=== PATIENT | male | born 1955 | race Caucasian/White ===

== ENCOUNTER 2020-05-16 15:49 | Outpatient (CLI) | payer MEDICARE, SELFPAY | END 2020-05-16 15:50 | disposition home or self-care (01) | LOC: ANHCOVIDVC 15:49 | PROVIDERS: PCP Internal Medicine | DX: Z23 Encounter for immunization (principal) | CPT/HCPCS: 0001A; 91300 ==

== ENCOUNTER 2020-06-06 15:47 | Outpatient (CLI) | payer MEDICARE, SELFPAY | END 2020-06-06 15:48 | disposition home or self-care (01) | LOC: ANHCOVIDVC 15:47 | PROVIDERS: PCP Internal Medicine | DX: Z23 Encounter for immunization (principal) | CPT/HCPCS: 0002A; 91300 ==

== ENCOUNTER 2020-09-30 08:29 | Outpatient (CLI) | payer MEDICARE, SELFPAY ==
--- NOTE | ~2020-09-30 | CT_ITS ---
EXAMINATION: CT chest abdomen wo con EXAM DATE: 09/30/2020 09:01 INDICATION: FU TAA and AAA . Asthma, shortness of breath. TECHNIQUE: Spiral CT of the chest and abdomen was performed without contrast. Axial, coronal and sa gittal images chest and abdomen were reviewed. Coronal maximum intensity pixel images of chest revie wed. The dose-length product (DLP) for this examination was 527.34 mGy-cm. The exposure was tailore d according to patient size (auto mA exposure control), and iterative reconstruction (ASIR) was used as additional dose reduction technique. Comparison is made to prior examination from 02/16/2019. FINDINGS: Aorta: The ascending aorta measures 5.4 cm, minimally increased in size. Caliber normalizes at the ao rtic arch, and then dilates again beyond to 4.5 cm proximal descending segment (was 4.3 cm). It then narrows distally and then enlarges again at the aortic hiatus where it measures 4.9 cm (previously 4. 5 cm). CHEST: There is moderate emphysema. The lungs are clear. There are no pleural or pericardial effusi ons. Tracheobronchial tree is patent. There is no mediastinal, hilar or axillary lymphadenopathy. There is no pneumothorax. Heart normal in size. Atrial septal closure device. No evidence of cor onary arterial calcification. ABDOMEN: The liver, spleen, adrenal glands and pancreas are unremarkable. Gallbladder is unremarkabl e. No biliary obstruction. There is no nephrolithiasis or hydronephrosis. There is no retroperit rivera lymphadenopathy. Minimal abdominal aortic arterial sclerosis and ectasia. Small umbilical fat -containing hernia. The appendix is normal. The stomach and small bowel are unremarkable. There is expected amount of c olonic stool. No free intraperitoneal gas. There are no osteoblastic or osteolytic lesions identi fied. IMPRESSION: 1. Ascending and descending thoracic aortic aneurysm, mild interval increase in diameters. 2. Small umbilical fat-containing hernia. 3. Moderate emphysema. Reviewed, dictated and finalized at location B. IMPRESSION: 1. Ascending and descending thoracic aortic aneurysm, mild interval increase i n diameters. 2. Small umbilical fat-containing hernia. 3. Moderate emphysema.
== END 2020-09-30 08:30 | disposition home or self-care (01) ==
PROVIDERS: PCP Internal Medicine; Visit Provider Internal Medicine Cardiovascular Disease
DX: J43.9 Emphysema, unspecified (principal); K44.9 Diaphragmatic hernia without obstruction or gangrene; I71.4 Abdominal aortic aneurysm, without rupture
CPT/HCPCS: 71250; 74150

== ENCOUNTER 2021-02-11 08:55 | Outpatient (CLI) | payer MEDICARE, SELFPAY ==
--- NOTE | ~2021-02-11 | CT_ITS ---
EXAMINATION: CTA chest abdomen pelvis DATE: 02/11/2021 10:00 INDICATION: Aortic aneurysm TECHNIQUE: Computed tomographic angiography (CTA) of the chest, abdomen, and pelvis was performed wit hout and with 100 mL Omnipque-350 intravenous contrast. Maximum intensity projection 3D-reconstructio ns of the aorta and other arteries were constructed by the technologist on a separate workstation. Th e dose-length product (DLP) was 935.24 mGy-cm. Automated exposure control and iterative reconstructio n technique were employed. COMPARISON: 09/30/2020 FINDINGS: CHEST CTA: There is a stable 5.3 x 5.2 cm fusiform aneurysm of the ascending aorta measured at the level of the main pulmonary artery. The descending thoracic aorta measures up to 4.2 cm in its proximal segment an d 4.1 cm just above the hiatus. There is no dissection. There is calcified and noncalcified atheroscl erosis of the thoracic aorta. There is moderate emphysema. There is mild dependent atelectasis. No pl eural effusion or pneumothorax is identified. No pathologically enlarged thoracic lymph nodes are aishwarya ntified. The heart size is normal. An ASD closure device is noted. There is moderate thoracic spondyl osis. ABDOMEN AND PELVIS CTA: The abdominal aorta measures 4.8 cm at the diaphragmatic hiatus. The distal abdominal aorta is normal in caliber. There is no dissection. 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 Singl e renal arteries are present. There is calcified atherosclerosis. Moderate amount of noncalcified ath erosclerosis is present in the proximal abdominal aorta. A stable 0.4 cm enhancing lesion is noted in the left hepatic lobe. A 10 mm cyst is present in the right hepatic lobe. The liver is otherwise unr emarkable. The spleen, pancreas, gallbladder, and adrenal glands are normal. The kidneys are unremark able. No pathologically enlarged abdominal or pelvic lymph nodes are identified. There is no free int raperitoneal gas or evidence of bowel obstruction. There is moderate lumbar spondylosis. IMPRESSION: 1. Stable fusiform aneurysm of the ascending aorta, proximal descending aorta, and aorta at the diaph ragmatic hiatus. No dissection. 2. 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 Reviewed, dictated and finalized at location A. 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 Stable fusiform aneurysm of the ascending aorta, proximal descending aorta, and aorta at the diaphragmatic hiatus. No dissection. 2. 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
== END 2021-02-11 08:56 | disposition home or self-care (01) ==
LOC: ANHIMG 08:58
PROVIDERS: PCP Internal Medicine; Visit Provider Internal Medicine Cardiovascular Disease
DX: I71.4 Abdominal aortic aneurysm, without rupture (principal)
CPT/HCPCS: 71275; 74174; Q9967

== ENCOUNTER 2021-10-10 16:10 | Outpatient (CLI) | payer MEDICARE, SELFPAY ==
--- NOTE | ~2021-10-10 | CT_ITS ---
EXAMINATION: CT chest abdomen wo con DATE: 10/10/2021 16:28 INDICATION: Abdominal aortic aneurysm EXAMINATION: CT chest abdomen wo con DATE: 10/10/2021 16:28 INDICATION: AAA TECHNIQUE: Computed tomography (CT) of the chest and abdomen was performed without intravenous contra st. Additional 3D reconstructions utilizing coronal maximum intensity projection (MIP) were performed . Automated exposure control and iterative reconstruction technique were employed. The dose-length pr oduct was 581.57 mGy-cm. COMPARISON: 02/21/2021 and 02/16/2019. FINDINGS: CHEST: Moderate emphysema. Mild discoid atelectasis at the lingula. No pneumonia, pulmonary edema, pleural e ffusion or pneumothorax. Heart size is normal. No pericardial effusion. ASD closure device. No pathol ogically enlarged thoracic lymphadenopathy. Moderate thoracic spondylosis. Diffusely aneurysmal aorta including a fusiform aneurysm of the ascending thoracic aorta measuring up to 5.1 x 5.4 cm tapering to 3.0 x 2.9 cm the isthmus. Aneurysmal dilation of the descending thoracic aorta measuring 4.4 x 4.3 cm proximally tapering slightly to 3.7 x 3.7 cm at the mid aorta at the level of the aortic valve be fore expanding again to 4.8 x 4.7 cm at the thoracic outlet. This is not significantly changed when c ompared with study dated 02/16/2019. ABDOMEN: There is further tapering of the abdominal aorta from the thoracic hiatus to a diameter of 3.2 x 3.2 cm at the level of the renal arteries decreasing and further to 2.4 x 2.4 cm at the level of the bifu rcation. Couple low-attenuation cysts in the right hepatic lobe the larger measuring 12 mm . The gall bladder, spleen, pancreas, bilateral adrenal glands and kidneys are normal. Retroaortic left renal ve in. Visualized portion of the bowels are unremarkable. No pathologically enlarged abdominal lymphaden opathy. 4 mm retrolisthesis L2 on L3 resulting in mild central canal stenosis at this level. There ar e severe associated disc height loss. Otherwise mild lumbar spondylosis. IMPRESSION: 1. No change since 02/16/2019 in aneurysmal dilation of the thoracic aorta with maximal diameters john suring 5.1 x 5.4 cm at the mid ascending thoracic aorta and 4.8 x 4.7 cm at the distal thoracic aorta at the thoracic hiatus. 2. Moderate emphysema. 3. Abdominal aorta tapers to normal caliber beginning at the level of the renal arteries where it john sures 3.2 cm. Reviewed, dictated and finalized at location A. IMPRESSION: 1. No change since 02/16/2019 in aneurysmal dilation of the thoracic aorta with maximal diameters measuring 5.1 x 5.4 cm at the mid ascending thoracic aorta a nd 4.8 x 4.7 cm at the distal thoracic aorta at the thoracic hiatus. 2. Moderate emphysema. 3. Abdominal aorta tapers to normal caliber beginning at the level of the renal arteries where it measures 3.2 cm.
== END 2021-10-10 16:11 | disposition home or self-care (01) ==
PROVIDERS: PCP Internal Medicine; Visit Provider Internal Medicine Cardiovascular Disease
DX: I71.2 Thoracic aortic aneurysm, without rupture (principal); I71.4 Abdominal aortic aneurysm, without rupture; J43.9 Emphysema, unspecified
CPT/HCPCS: 71250; 74150

== ENCOUNTER 2022-04-21 09:17 | Outpatient (CLI) | payer MEDICARE, SELFPAY ==
--- NOTE | ~2022-04-21 | US_ITS ---
EXAMINATION: US carotid duplex BI DATE: 04/21/2022 09:46 INDICATION: Left carotid bruit. TECHNIQUE: Grayscale, color Doppler, and pulsed Doppler images of the cervical carotid arteries were obtained. The degree of vessel stenosis is placed in one of the following categories: normal, <50%, 5 0-69%, >=70% but less than near-occlusion, near-occlusion, or total occlusion. Note that percent sten osis relative to normal distal artery lumen diameter is indirectly measured from velocity measurement s as described by Jasper, et al. Radiology 2003; [id number]:340-346. COMPARISON: Ultrasound 12/23/2016 FINDINGS: RIGHT: The right common carotid artery (CCA) peak systolic velocity (PSV) is 103 cm/s. The right internal ca rotid artery (ICA) PSV is 112 cm/s. The right ICA end-diastolic velocity (EDV) is 20 cm/s. The right ICA/CCA PSV ratio is 1.1. Grayscale and color Doppler images yield an estimate of <50% diameter reduc tion from plaque in the ICA. There is antegrade flow in the right vertebral artery. LEFT: The left CCA PSV is 86 cm/s. The left ICA PSV is 97 cm/s. The left ICA EDV is 19 cm/s. The left ICA/C CA PSV ratio is 1.1. Grayscale and color Doppler images yield an estimate of <50% diameter reduction from plaque in the ICA. There is antegrade flow in the left vertebral artery. IMPRESSION: 1. <50% stenosis in the right internal carotid artery. 2. <50% stenosis in the left internal carotid artery. Reviewed, dictated and finalized at location A. 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
--- NOTE | ~2022-04-21 | CT_ITS ---
EXAMINATION: CT chest abdomen wo con DATE: 04/21/2022 09:51 INDICATION: Aortic aneurysm without rupture TECHNIQUE: Computed tomography (CT) of the chest and abdomen was performed without intravenous contra st. The dose-length product (DLP) was 480.03 mGy-cm. Automated exposure control and iterative reconst ruction technique were employed. COMPARISON: 02/11/2021 FINDINGS: CHEST: There is a stable 5.3 x 4.9 cm fusiform aneurysm of the ascending aorta measured at the level of the main pulmonary artery. The descending aorta measures up to 4.5 cm in its proximal segment and 4.2 cm above the hiatus. There is moderate emphysema. An ASD closure device is noted. No pathological ly enlarged thoracic lymph nodes are identified. The heart size is normal. ABDOMEN: The aorta measures 4.8 cm at the level of the diaphragmatic hiatus. The distal abdominal aor ta is normal in caliber. No dissection is identified. 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 There is a 10 mm cyst of the right hepatic lobe. The spleen, pancreas, gallbladder, and adrenal glands are normal there are no pathologically enlarged abdominal nodes. A moderate volum e of colonic stool is present. No free intraperitoneal gas or evidence of bowel obstruction. IMPRESSION: 1. Stable fusiform aneurysm of the ascending aorta, proximal descending aorta, and aorta at the diaph ragmatic hiatus. Reviewed, dictated and finalized at location L. 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 Stable fusiform aneurysm of the ascending aorta, proximal descending aorta, and aorta at the diaphragmatic hiatus.
== END 2022-04-21 09:18 | disposition home or self-care (01) ==
PROVIDERS: PCP Family Medicine; Visit Provider Internal Medicine Cardiovascular Disease
DX: I71.21 Aneurysm of the ascending aorta, without rupture (principal); I71.40 Abdominal aortic aneurysm, without rupture, unspecified; I65.23 Occlusion and stenosis of bilateral carotid arteries
CPT/HCPCS: 71250; 74150; 93880

== ENCOUNTER 2022-05-25 10:50 | Outpatient (CLI) | payer MEDICARE, SELFPAY ==
[2022-05-25 20:31] LABS: Alanine Aminotransferase 28 U/L (6-50); Albumin Level 4.3 g/dL (3.5-5.1); Alkaline Phosphatase 83 U/L (38-126); Anion Gap 6 mmol/L (8-16); Aspartate Amino Transferase 23 U/L (17-59); Bilirubin,Total 0.5 mg/dL (0.2-1.3); Blood Urea Nitrogen 31 mg/dL (9-20); Calcium 9.2 mg/dL (8.4-10.2); Carbon Dioxide 27 mmol/L (22-30); Chloride 105 mmol/L (98-107); Cholesterol 171 mg/dL (0-200); Estimated Glomerular Filt Rate 60; Glucose 102 mg/dL (65-110); HDL Direct 51 mg/dL; Potassium 4.7 mmol/L (3.4-5.0); Sodium 138 mmol/L (137-145); Triglycerides 91 mg/dL (<150)
[2022-05-25 20:43] LABS: LDL Cholesterol Direct 87 mg/dL
[2022-05-25 21:18] LABS: Hemoglobin A1C 5.6 % (<5.7)
== END 2022-05-25 10:51 | disposition home or self-care (01) ==
LOC: ANHGOSHLAB 10:51
PROVIDERS: PCP Family Medicine; Visit Provider Family Medicine
DX: E78.5 Hyperlipidemia, unspecified (principal); R73.01 Impaired fasting glucose; I10 Essential (primary) hypertension; Z12.5 Encounter for screening for malignant neoplasm of prostate
CPT/HCPCS: 36415; 80053; 80061; 83036; 84153; G0103

== ENCOUNTER 2022-10-23 15:48 | Outpatient (CLI) | payer MEDICARE, SELFPAY ==
--- NOTE | ~2022-10-23 | CT_ITS ---
EXAMINATION: CT diagnostic chest wo con DATE: 10/23/2022 16:08 INDICATION: Thoracic aortic aneurysm without rupture TECHNIQUE: Computed tomography (CT) of the chest was performed without intravenous contrast. The dose -length product (DLP) was 297.06 mGy-cm. Automated exposure control and iterative reconstruction tech [employer] were employed. COMPARISON: 04/21/2022 FINDINGS: There is a 5.3 x 4.9 cm fusiform aneurysm of the ascending aorta measured at the level of t he main pulmonary artery. The descending thoracic aorta measures 4.5 cm in its proximal segment, 4.2 cm in the distal descending aorta and 4.8 cm at the diaphragmatic hiatus There is moderate thoracic s pondylosis. . Although limited by the absence of intravenous contrast, no dissection is identified. An ASD closure device is noted. There is a 3 mm nodule of the left lower lobe. No pleural effusion or pneumothorax. No pathologically enlarged thoracic lymph nodes are identified. The heart size is norm al. There is a 10 mm cyst of the right hepatic lobe. IMPRESSION: 1. Stable fusiform aneurysm of the thoracic aorta. 2. Moderate emphysema. Reviewed, dictated and finalized at location F.
== END 2022-10-23 15:49 | disposition home or self-care (01) ==
PROVIDERS: PCP Family Medicine; Visit Provider Internal Medicine Cardiovascular Disease
DX: I71.21 Aneurysm of the ascending aorta, without rupture (principal); J43.9 Emphysema, unspecified
CPT/HCPCS: 71250

== ENCOUNTER → 2022-11-26 09:10 | Outpatient (CLI) | payer MEDICARE, SELFPAY ==
--- NOTE | ~2022-11-26 | XR_ITS ---
EXAMINATION: XR knee RT 3V DATE: 11/26/2022 09:22 INDICATION: Right knee pain TECHNIQUE: Three views of the right knee were obtained. COMPARISON: None. FINDINGS: Alignment is normal. No fracture or osteochondral lesion. There is mild tricompartmental os teoarthritis characterized by tiny marginal osteophytes. No joint effusion/synovitis. There is soft tissue swelling near the distal femur. IMPRESSION: 1. Soft tissue swelling without acute osseous abnormality. Reviewed, dictated and finalized at location L.
== END ==
PROVIDERS: PCP Family Medicine; Visit Provider Family Medicine
DX: M25.561 Pain in right knee (principal)
CPT/HCPCS: 73562

== ENCOUNTER 2023-05-04 10:10 | Outpatient (CLI) | payer MEDICARE, SELFPAY ==
--- NOTE | ~2023-05-04 | CT_ITS ---
EXAMINATION: CT chest abdomen wo con DATE: 05/04/2023 10:47 INDICATION: Lung nodule, abdominal aortic aneurysm TECHNIQUE: Computed tomography (CT) of the chest and abdomen was performed without intravenous contra st. The dose-length product (DLP) was 547.29 mGy-cm. Automated exposure control and iterative reconst ruction technique were employed. COMPARISON: 10/23/2022, 04/21/2022 FINDINGS: Chest CT: There is moderate emphysema. An ASD closure device is noted. There is a stable 3 mm nodule of the left lower lobe. The heart size is normal. There are no pathologically enlarged thoracic lymph nodes. There is a stable 5.3 x 5.0 cm fusiform aneurysm measured at the level of the main pulmonary artery. There is stable fusiform enlargement of the proximal descending aorta measuring 4.5 cm proxim ally and 4.8 cm at the diaphragmatic hiatus. There is moderate thoracic spondylosis. Abdomen CT: The abdominal aorta is normal in caliber. The spleen, pancreas, gallbladder, and adrenal glands are normal. The kidneys are unremarkable. There is an 11 mm cyst in the right hepatic lobe. Th e adrenal glands are normal. There are no pathologically enlarged abdominal lymph nodes. No free intr aperitoneal gas or evidence of bowel obstruction. There is moderate lumbar spondylosis. IMPRESSION: 1. Stable fusiform aneurysms of the thoracic aorta. 2. No acute findings in the abdomen. Reviewed, dictated and finalized at location L. 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
== END 2023-05-04 10:11 | disposition home or self-care (01) ==
LOC: ANHIMG 10:15
PROVIDERS: PCP Family Medicine; Visit Provider Internal Medicine Cardiovascular Disease
DX: I71.41 Pararenal abdominal aortic aneurysm, without rupture (principal); R91.1 Solitary pulmonary nodule
CPT/HCPCS: 71250; 74150

== ENCOUNTER 2023-05-27 10:21 | Outpatient (CLI) | payer MEDICARE, SELFPAY ==
[2023-05-27 18:25] LABS: Alanine Aminotransferase 29 U/L (6-50); Albumin Level 4.2 g/dL (3.5-5.1); Alkaline Phosphatase 90 U/L (38-126); Anion Gap 7 mmol/L (8-16); Aspartate Amino Transferase 30 U/L (17-59); Bilirubin,Total 0.7 mg/dL (0.2-1.3); Blood Urea Nitrogen 27 mg/dL (9-20); Carbon Dioxide 27 mmol/L (22-30); Chloride 105 mmol/L (98-107); Cholesterol 180 mg/dL (0-200); Estimated Glomerular Filt Rate 60; Glucose 110 mg/dL (65-110); HDL Direct 47 mg/dL; Potassium 4.4 mmol/L (3.4-5.0); Sodium 139 mmol/L (137-145); Triglycerides 151 mg/dL (<150)
[2023-05-27 19:03] LABS: Prostate Specific Antigen 3.1 ng/mL (< OR = 4.0)
[2023-05-27 22:09] LABS: LDL Cholesterol Direct 121 mg/dL
[2023-05-28 02:38] LABS: Hemoglobin A1C 6.1 % (<5.7)
== END 2023-05-27 10:22 | disposition home or self-care (01) ==
LOC: ANHGOSHLAB 10:23
PROVIDERS: PCP Family Medicine; Visit Provider Family Medicine
DX: R73.01 Impaired fasting glucose (principal); I10 Essential (primary) hypertension; Z13.220 Encounter for screening for lipoid disorders; Z13.228 Encounter for screening for other metabolic disorders; Z12.5 Encounter for screening for malignant neoplasm of prostate
CPT/HCPCS: 36415; 80053; 80061; 83036; 84153; G0103

== ENCOUNTER 2023-11-11 07:40 | Outpatient (CLI) | payer MEDICARE, SELFPAY ==
--- NOTE | ~2023-11-11 | CT_ITS ---
EXAMINATION: CTA chest abdomen pelvis DATE: 11/11/2023 08:24 INDICATION: Aneurysm of ascending aorta. TECHNIQUE: Computed tomographic angiography (CTA) of the chest, abdomen, and pelvis was performed wit h 100 mL Omnipaque-350 intravenous contrast. Automated exposure control and iterative reconstruction technique were employed. The dose-length product was 877.06 mGy-cm. Maximum intensity projection 3D-r econstructions of the aorta and other arteries were constructed by the technologist on a separate wor kstation. COMPARISON: CT 05/04/2023 FINDINGS: CHEST CTA: There is mild scarring at the lung apices. There is moderate emphysema. There is mild atelectasis carmen aterally. There is a 3 mm nodule in left lower lobe, likely benign. No pleural effusion. Cardiomegaly is noted. There is an interatrial closure device. No pericardial effusion. The aorta measures 3.7 cm at the sinuses of Valsalva, 3.4 cm at the sinotubular junction, 5.1 cm at the mid ascending aorta, 2 .7 cm in the isthmus, 4.5 cm in the proximal descending aorta, and 3.9 cm in the distal descending th oracic aorta. Aortic atherosclerosis is noted. There is severe cervical thoracic spondylosis ABDOMEN AND PELVIS CTA: There is a 12 mm cyst in the liver. The gallbladder, spleen, pancreas, and adrenal glands are normal. There is cortical thinning of the kidneys. There are cysts in the kidneys measuring up to 3 mm. The prostate is moderately enlarged. There are no dilated loops of bowel. The appendix is normal. There a re no pathologically enlarged lymph nodes. There is no free intraperitoneal fluid. There is an umbili terrance hernia containing fat. Suprarenal aorta measures 4.7 cm. Infrarenal aorta measures 2.9 cm. There is severe stenosis of the origin of celiac axis. There is no significant stenosis of superior mesente kurt artery or inferior mesenteric artery. There is moderate lumbar spondylosis. IMPRESSION: 1. Stable 5.1 cm fusiform aneurysm of ascending aorta. 2. Stable 4.7 cm fusiform aneurysm of suprarenal abdominal aorta. Reviewed, dictated and finalized at location A.
[2023-11-11 08:18] LABS: Estimated Glomerular Filt Rate 47
== END 2023-11-11 07:41 | disposition home or self-care (01) ==
PROVIDERS: PCP Family Medicine; Visit Provider Internal Medicine Cardiovascular Disease
DX: I71.21 Aneurysm of the ascending aorta, without rupture (principal); Z87.74 Personal history of (corrected) congenital malformations of heart and circulatory system
CPT/HCPCS: 71275; 74174; Q9967

== ENCOUNTER 2023-12-12 11:48 | Emergency (ER) | payer MEDICARE, SELFPAY ==
--- NOTE | ~2023-12-12 | XR_ITS ---
EXAMINATION: XR chest 2V Exam Date/Time: 12/12/2023 13:38 CDT HISTORY: cough x 9 days Comparison: 01/29/2017. RESULT: Lines, tubes, and devices: Atrial occlusion device. Lungs and pleura: Clear. Cardiomediastinal silhouette: Stable. Other: No acute osseous or upper abdominal finding. IMPRESSION: No acute cardiopulmonary process. Reviewed, dictated and finalized at location K.
[2023-12-12 12:25] VITALS: BP 113/64; PULSE 77; RESP 16; TEMP 36.6; O2SAT 100
--- NOTE | 2023-12-12 13:48 | ED.GENADULT ---
HPI - General Adult General Chief complaint: Upper Respiratory Infection Stated complaint: CHEST CONGESITON/SOB Source: patient Mode of arrival: ambulatory Limitations: no limitations History of Present Illness HPI narrative: Patient presents for evaluation of a cough for the last 9 days. He states the cough is productive but he is unsure of the color of the expectorant. He has some chronic shortness of breath, not worse as of late. He is a former smoker, with quit date in 2010. He has a history of COPD, HTN, asthma and hyperlipidemia. He reports a Tmax at home of 100.6 F. He is concerned about a sore throat and has had some diarrhea which he attributes to taking Ricola. No nausea or vomiting. No recent sick contacts to his knowledge. He has been using robitussin and he had some leftover nebulizer treatments from 2017 that he tried. He had mild improvement in his symptoms thereafter. Related Data Home Medications Medication Instructions Recorded Confirmed aspirin 81 mg tablet,delayed 81 mg PO DAILY 03/30/19 12/12/23 release (Adult Low Dose Aspirin) lactase 9,000 unit tablet 9,000 unit PO ONCE 03/30/19 12/12/23 amlodipine 10 mg tablet 10 mg PO DAILY 11/20/21 12/12/23 lisinopril 20 mg tablet 20 mg PO DAILY 11/26/22 12/12/23 metoprolol succinate 50 mg 50 mg PO DAILY 11/26/22 12/12/23 tablet,extended release 24 hr omeprazole 20 mg capsule,delayed 20 mg PO DAILY 12/12/23 12/12/23 release Allergies Allergy/AdvReac Type Severity Reaction Status Date / Time adhesive AdvReac Unknown Other Verified 12/12/23 12:20 Review of Systems Review of Systems: CONSTITUTIONAL: Denies fever, chills, or sweats. EYES: Denies visual changes, redness, or discharge. ENT: Reports sore throat.Denies rhinorrhea, congestion, or otalgia. CARDIOVASCULAR: Denies chest pain, palpitations, or edema. RESPIRATORY: Reports productive cough. Reports chronic shortness of breath. GASTROINTESTINAL: Denies abdominal pain, nausea, vomiting, or diarrhea. GENITOURINARY: Denies dysuria or hematuria. SKIN: Denies rash or itching. MUSCULOSKELETAL: Denies back pain, joint pain, or myalgia. NEUROLOGIC: Denies headache, numbness, dizziness, or weakness. PSYCHIATRIC: Denies anxiety or depression. [facility] Past Medical History Medical History History of aortic aneurysm History of hyperlipidemia History of hypertension Surgical History Surgical History No significant past surgical history Family History Family History Mother Family history of malignant neoplasm Social History Social History Smoking status: Former smoker Second hand tobacco smoke exposure: No Smoking end date: 03/08/09 Alcohol intake: never Substance use: never Current Housing: Decline to Answer Concerned About Future Housing: Decline to Answer Difficulty Paying Gas/Electric Bills: Decline to Answer Difficulty Paying for Meds: Decline to Answer Currently Unemployed: Decline to Answer Education: Decline to Answer Difficulty w/ Childcare or Family Care: Decline to Answer Exam Narrative: GENERAL: Well-appearing, well-nourished, and in no acute distress. HEAD: Normocephalic, atraumatic. EYES: PERRLA and EOMI. ENT: Nares clear, no rhinorrhea or epistaxis. Mucous membranes moist. Oropharynx without tonsillar hypertrophy exudate or other lesions. Bilateral TMs pearly burger nonbulging NECK: Supple. No adenopathy or masses. No carotid bruits or JVD CHEST: Clear to auscultation. No respiratory distress. No wheezes rales or rhonchi HEART: Regular rate and rhythm. No murmur heard. Normal peripheral pulses. ABDOMEN: Soft, nontender, nondistended, normal active bowel sounds. EXTREMITIES: Normal range of motion. No
[2023-12-12 14:02] LABS: EDSTREPNEGPOS1 Negative (Negative)
== END 2023-12-12 14:39 | disposition home or self-care (01) ==
PROVIDERS: Emergency Provider Nurse Practitioner; PCP Family Medicine
DX: J06.9 Acute upper respiratory infection, unspecified (principal); Z87.891 Personal history of nicotine dependence; J44.9 Chronic obstructive pulmonary disease, unspecified; E78.5 Hyperlipidemia, unspecified; I10 Essential (primary) hypertension
CPT/HCPCS: 71046; 87081; 87880; 99213; G0463

== ENCOUNTER 2024-05-30 08:55 | Outpatient (CLI) | payer MEDICARE, SELFPAY ==
--- OUTSIDE RECORDS SUMMARY | 2024-05-30 09:39 | XMS_ITS | Referral Summary ---
Author Organization [facility] Address [address] [place] [address] Care Team Providers Care Flavor Maker Name Role Phone Leighton Trent DO Primary Care Provider [phone] Encounters Date Type Department Care Team Description 05/08/2024 9:45 AM FOOD AND BEVERAGE CONTROLLER Office Visit [facility] Cardiology [address] [place] [address] Hong Merrill MD Status post device closure of ASD (Primary Dx); Mixed hyperlipidemia; Essential hypertension; Abdominal aortic aneurysm (AAA) without rupture, unspecified part; Aneurysm of ascending aorta without rupture from Last 3 Months Allergies No known active allergies Medications atorvastatin (LIPITOR) 20 mg tablet Take 1 tablet (20 mg total) by mouth daily Active albuterol HFA (PROVENTIL HFA,VENTOLIN HFA) 90 mcg/actuation inhaler Inhale 2 puffs every 6 (six) hours as needed for wheezing Active lactase 9,000 unit tablet Take by mouth as needed Active aspirin 81 mg tablet Take 1 tablet (81 mg total) by mouth daily Active chlorthalidone 25 mg tabletIndication s:Essential hypertension Take 1 tablet (25 mg total) by mouth daily 30 tablet 11 2 Active lisinopriL (PRINIVIL,ZESTRI L) 20 mg tabletIndication s:Essential hypertension TAKE 1 TABLET BY MOUTH EVERY DAY 90 tablet 3 4 Active metoprolol XL (TOPROL-XL) 50 mg extended release tabletIndication s:Essential hypertension TAKE 1 TABLET BY MOUTH EVERY DAY 90 tablet 3 4 Active amLODIPine (NORVASC) 10 mg tabletIndication s:Essential hypertension TAKE 1 TABLET BY MOUTH EVERY DAY 90 tablet 3 5 Active famotidine (PEPCID) 40 mg tablet Take 1 tablet (40 mg total) by mouth daily 4 Active omeprazole (PriLOSEC) 20 mg capsule Take 1 capsule (20 mg total) by mouth daily 05/09/19 25 Discontinu ed(Alterna te therapy) Active Problems Problem Noted Date Diagnosed Date Left lower lobe pulmonary nodule 04/27/2023 Statin intolerance 04/26/2022 Left carotid bruit 04/14/2022 Abdominal aortic atherosclerosis 10/11/2021 Hypotension due to drugs 10/06/2021 Bradycardia 10/06/2021 Other emphysema 03/28/2019 Status post device closure of ASD 10/14/2017 Prediabetes 10/14/2017 Irritable bowel syndrome with constipation 10/14 Bleeding hemorrhoid 10/14/2017 Mitral valve insufficiency and aortic valve insu fficiency 10/14/2017 Diastolic dysfunction without heart failure 11/2017 Atrial septal defect 02/04/2017 Ascending aortic aneurysm 01/22/2017 Abdominal aortic aneurysm (AAA) without rupture 12/15/2016 GERD (gastroesophageal reflux disease) 7 Mixed hyperlipidemia 12/15/2016 FELTON (generalized anxiety disorder) 12/15/2016 Essential hypertension 12/15/2016 SOFIA (dyspnea on exertion) 12/15/2016 Resolved Problems Problem Noted Date Diagnosed Date Resolved Date ASD (atrial septal defect) 01/22/2017 0 04/14/2022 Social History Tobacco Use Types Packs/Day Years Used Date Smoking Tobacco: Former Smokeless Tobacco: Never Tobacco Cessation:Counseling Given: Not Answered Comments:2010 Alcohol Use Standard Drinks/Week Comments No 0 (1 standard drink = 0.6 oz pur e alcohol) Sex and Gender Information Value Date Recorded Sex Assigned at Not on file Legal Sex Male 2:24 AM FOOD AND BEVERAGE CONTROLLER Gender Identity Not on file Sexual Orientation Not on file Last Filed Vital Signs Vital Sign Reading Time Taken Comments Blood Pressure 100/50 05/08/2024 9:49 AM FOOD AND BEVERAGE CONTROLLER Pulse 72 05/08/2024 9:49 AM FOOD AND BEVERAGE CONTROLLER Temperature - - Respiratory Rate 16 12/15/2016 12:55 PM CDT Oxygen Saturation 97% 05/08/2024 9:49 AM FOOD AND BEVERAGE CONTROLLER Inhaled Oxygen Concentration - - Weight 86.5 kg (190 lb 9.6 oz) 05/08/2024 9:49 A M FOOD AND BEVERAGE CONTROLLER Height 182.9 cm (6') 05/08/2024 9:49 AM FOOD AND BEVERAGE CONTROLLER Body Mass Index 25.85 05/08/2024 9:49 AM FOOD AND BEVERAGE CONTROLLER Plan of Treatment Not on file Procedures Procedure Name Priority Date/Time Associated Diagnosis Comments POCT LIPID PANEL Routine 05/08/2024 10:1 6 AM FOOD AND BEVERAGE CONTROLLER Mixed hyperlipidemia CT ABDOMEN W CONTRAST Schedule Routine, Read Routine (OP Routine) 02/16/2019 from Last 3 Months or Most Recently Relevant to Health Maintenance Results * POCT lipid panel (05/08/2024 10:16 AM FOOD AND BEVERAGE CONTROLLER) Cholesterol, POC 145 mg/dL HDL, POC 53 mg/dL Triglycerides, POC 123 mg/dL LDL Cholesterol POC 67 mg/dL Chol/HDL Ratio, POC 1.3 Non-HDL Cholesterol, POC 92 mg/dL Cholesterol Total, POC 145 mg/dL Capillary blood 05/08/2024 1 0:16 AM FOOD AND BEVERAGE CONTROLLER Hong Merrill MD POINT OF CARE TEST O RDERABLES Final Result * CT Abdomen W Contrast (02/16/2019) Anatomical Region Laterality Modality Body N/A Computed Tomogra phy Historical Provider MD OSMAN CT PROCEDURES Final R esult from Last 3 Months or Most Recently Relevant to Health Maintenance Insurance MEDICARE [facility] MEDICARE [employer] MEDICARE SUPPLEMENT Care Teams Flavor Maker Relationship Specialty Start Date End Date Leighton Trent DO PCP - General Family Medicine 04/14/22
--- OUTSIDE RECORDS SUMMARY | 2024-05-30 09:39 | XMS_ITS | Clinical Summary ---
Author Organization [facility] Address [address] [place] [address] Care Team Providers Care Risk Management Internship Name Role Phone Unavailable Primary Care Provider Unavailabl e Source Comments [facility],non-owned Affiliates and Associated Physician Practices is amultiple site organization consisting of ambulatory clinics and hospital sitesin [place], [place], [place] and [place]. This disclosure is being madepursuant to the Care Everywhere program and may not contain all information available regarding this patient. Last updated 17.[facility] [email or web address] Social History Tobacco Use Types Packs/Day Years Used Date Smoking Tobacco: Never Assessed Sex and Gender Information Value Date Recorded Sex Assigned at Not on file Gender Identity Not on file Sexual Orientation Not on file Plan of Treatment Health Maintenance Due Date Last Done Comments COLOGUARD (AGES 45-75) - COL ON CA SCREENING 1954 COLON MONITORING 1954 COLONOSCOPY - COLON CA SCREENING 1954 CT COLONOGRAPHY - COLON CA SCREENING 1954 Colorectal Cancer Screening 1954 FIT - COLON CA SCREENING 1954 FLEX SIG - COLON CA SCREENING 1954 LIPID TESTING 1954 HEPATITIS C SCREENING 11/19/1972 DTAP/TDAP/TD VACCINES (1 - Tdap) 1973 PNEUMOCOCCAL VACCINE 50+ (1 of 1 - PCV) 2004 ZOSTER VACCINE (1 of 2) 2004 COVID-19 VACCINE (3 - 2023-2 5 season) 2023 06/06/2020, 05/16/2020 INFLUENZA VACCINE (#1) 2023 DEPRESSION SCREENING 03/08/2024 Respiratory Syncytial Virus (RSV) Vaccine Pt: or over 60 yrs (1 - 1-dose 75+ series) 2029 HEPATITIS B VACCINE Aged Out No longe r eligible based on patient's age to complete this topic HIB VACCINE Aged Out No longer eligi ble based on patient's age to complete this topic HPV VACCINE Aged Out No longer eligi ble based on patient's age to complete this topic MENINGOCOCCAL (Group B) VACCINE SHARED DECISION-MAKING Aged Out No longer eligible based on patient's age to complete this topic MENINGOCOCCAL GROUPS A/C/Y/W VACCINE Aged Out No longer eligible b ased on patient's age to complete this topic
--- OUTSIDE RECORDS SUMMARY | 2024-05-30 09:39 | XMS_ITS | Clinical Summary ---
Author Organization [facility] Address [address] [place] [address] Care Team Providers Care Denture Contour Wire Specialist Name Role Phone Leighton Trent DO Primary Care Provider [phone] Allergies No known active allergies Medications atorvastatin [...] ASD (atrial septal defect) 01/22/2017 0 04/14/2022 Encounters Date Type Department Care Team Description 05/08/2024 9:45 AM LIGHT OUT EXAMINER Office Visit [facility] Cardiology [address] [place] [address] Hong Merrill MD Status post device closure of ASD (Primary Dx); Mixed hyperlipidemia; Essential hypertension; Abdominal aortic aneurysm (AAA) without rupture, unspecified part; Aneurysm of ascending aorta without rupture from Last 3 Months Medical History Medical History Date Comments Hypertension Hyperlipidemia Asthma Abdominal aortic aneurysm (AAA) without rupture 12/15/2016 GERD (gastroesophageal reflux disease) 7 Mixed hyperlipidemia 12/15/2016 FELTON (generalized anxiety disorder) 12/15/2016 Essential hypertension 12/15/2016 Dyspnea on exertion 12/15/2016 Ascending aortic aneurysm 01/22/2017 ASD (atrial septal defect) 01/22/2017 Family History Medical History Relation Name Comments Stroke Father CVA after CEA Cancer Mother Small cell lung cancer Relation Name Status Comments Father (Age 92) Mother (Age 63) Social History Tobacco Use Types Packs/Day Years Used Date Smoking Tobacco: Former Smokeless Tobacco: Never Tobacco Cessation:Counseling Given: Not Answered Comments:2010 Alcohol Use Standard Drinks/Week Comments No 0 (1 standard drink = 0.6 oz pur e alcohol) Sex and Gender Information Value Date Recorded Sex Assigned at Not on file Legal Sex Male 2:24 AM LIGHT OUT EXAMINER Gender Identity Not on file Sexual Orientation Not on file Obstetrics History Last Filed Vital Signs Vital Sign Reading Time Taken Comments Blood Pressure 100/50 05/08/2024 9:49 AM LIGHT OUT EXAMINER Pulse 72 05/08/2024 9:49 AM LIGHT OUT EXAMINER Temperature - - Respiratory Rate 16 12/15/2016 12:55 PM CDT Oxygen Saturation 97% 05/08/2024 9:49 AM LIGHT OUT EXAMINER Inhaled Oxygen Concentration - - Weight 86.5 kg (190 lb 9.6 oz) 05/08/2024 9:49 A M LIGHT OUT EXAMINER Height 182.9 cm (6') 05/08/2024 9:49 AM LIGHT OUT EXAMINER Body Mass Index 25.85 05/08/2024 9:49 AM LIGHT OUT EXAMINER Plan of Treatment Health Maintenance Due Date Last Done Comments Colon Cancer Screening-Colonoscopy 1954 Depression Screening 1954 Fall Risk Assessment 1954 Hepatitis C Screening 1954 Prostate Cancer Screening-PSA 1954 DTaP/Tdap/Td Vaccine (1 - Tdap) 1965 Hepatitis B Screening 1972 Pneumococcal vaccine 65+ (1 of 2 - PCV) 1973 Zoster Vaccine (1 of 2) 2004 Well Visit 65+ 11/25/2019 Influenza Vaccine (#1) 2023 Abdominal Aortic Aneurysm (A AA) Screen Completed 05/08/2024, 11/01/2023, 04/27/2023, Additional history exists Procedures Procedure Name Priority Date/Time Associated Diagnosis Comments POCT LIPID PANEL Routine 05/08/2024 10:1 6 AM LIGHT OUT EXAMINER Mixed hyperlipidemia CT ABDOMEN W CONTRAST Schedule Routine, Read Routine (OP Routine) 02/16/2019 from Last 3 Months or Most Recently Relevant to Health Maintenance Results * POCT lipid panel (05/08/2024 10:16 AM LIGHT OUT EXAMINER) Cholesterol, POC 145 mg/dL HDL, POC 53 mg/dL Triglycerides, POC 123 mg/dL LDL Cholesterol POC 67 mg/dL Chol/HDL Ratio, POC 1.3 Non-HDL Cholesterol, POC 92 mg/dL Cholesterol Total, POC 145 mg/dL Capillary blood 05/08/2024 1 0:16 AM LIGHT OUT EXAMINER Hong Merrill MD POINT OF CARE TEST O RDERABLES Final Result * CT Abdomen W Contrast (02/16/2019) Anatomical Region Laterality Modality Body N/A Computed Tomogra phy us Historical Provider IMG CT PROCEDURES Final R esult from Last 3 Months or Most Recently Relevant to Health Maintenance Insurance MEDICARE [facility] MEDICARE [facility] MEDICARE SUPPLEMENT Care Teams Denture Contour Wire Specialist Relationship Specialty Start Date End Date Leighton Trent DO PCP - General Family Medicine 04/14/22
[2024-05-30 19:40] LABS: Alanine Aminotransferase 27 U/L (6-50); Alkaline Phosphatase 76 U/L (38-126); Anion Gap 6 mmol/L (4-12); Aspartate Amino Transferase 32 U/L (17-59); Bilirubin,Total 0.5 mg/dL (0.2-1.3); Blood Urea Nitrogen 28 mg/dL (9-20); Carbon Dioxide 27 mmol/L (22-30); Chloride 104 mmol/L (98-107); Cholesterol 155 mg/dL (0-200); Estimated Glomerular Filt Rate 57; Glucose 98 mg/dL (65-110); HDL Direct 48 mg/dL; Sodium 137 mmol/L (137-145); Triglycerides 125 mg/dL (<150)
[2024-05-30 19:51] LABS: LDL Cholesterol Direct 75 mg/dL
[2024-05-30 20:11] LABS: Prostate Specific Antigen 2.3 ng/mL (< OR = 4.0)
[2024-05-30 20:15] LABS: Hematocrit 34.8 % (42.0-52.0); Hemoglobin 11.3 g/dL (14.0-18.0); Mean Corpuscular HGB Conc 32.5 g/dl (32-36); Mean Corpuscular Volume 110.8 fl (80-100); Mean Platelet Volume 9.3 fl (7.4-10.4); Platelet Count Result 255 k/mm3 (150-375); Red Blood Count 3.14 M/mm3 (4.6-6.20); Red Cell Distribution Width 13.6 % (11.5-14.5); White Blood Count 3.9 K/mm3 (4.5-10.0)
[2024-05-30 20:17] LABS: Hemoglobin A1C 5.8 % (<5.7)
== END 2024-05-30 08:56 | disposition home or self-care (01) ==
LOC: ANHGOSHLAB 08:56
PROVIDERS: PCP Family Medicine; Visit Provider Family Medicine
DX: R73.03 Prediabetes (principal); Z79.899 Other long term (current) drug therapy; I10 Essential (primary) hypertension; E78.2 Mixed hyperlipidemia; Z12.5 Encounter for screening for malignant neoplasm of prostate
CPT/HCPCS: 36415; 80053; 80061; 83036; 84153; 84443; 85027; G0103

== ENCOUNTER 2024-07-03 10:54 | Outpatient (CLI) | payer MEDICARE, SELFPAY ==
[2024-07-03 11:29] LABS: Hematocrit 33.4 % (42.0-52.0); Hemoglobin 11.1 g/dL (14.0-18.0); Mean Corpuscular HGB Conc 33.2 g/dl (32-36); Mean Corpuscular Hemoglobin 36.5 pg (26-34); Mean Corpuscular Volume 109.9 fl (80-100); Mean Platelet Volume 8.8 fl (7.4-10.4); Platelet Count Result 195 k/mm3 (150-375); Red Blood Count 3.04 M/mm3 (4.6-6.20); Red Cell Distribution Width 12.8 % (11.5-14.5); White Blood Count 4.1 K/mm3 (4.5-10.0)
[2024-07-03 12:12] LABS: Iron 91 ug/dL (49-181)
[2024-07-03 12:23] LABS: Percent Iron Saturation 35 % (20-50)
--- OUTSIDE RECORDS SUMMARY | 2024-07-03 12:48 | XMS_ITS | Referral Summary ---
Author Organization [facility] Address [address] [place] [address] Care Team Providers Care Window Installation Subcontractor Name Role Phone Leighton Trent DO Primary Care Provider [phone] Encounters Date Type Department Care Team Description 05/08/2024 9:45 AM BUSINESS INTELLIGENCE ARCHITECT Office Visit [facility] Cardiology [address] [place] [address] Hong Merrill MD Status post [...] by mouth daily Active chlorthalidone 25 mg tabletIndications :Essential hypertension Take 1 tablet (25 mg total) by mouth daily 30 tablet 11 2 Active lisinopriL (PRINIVIL,ZESTRIL ) 20 mg tabletIndications :Essential hypertension TAKE 1 TABLET BY MOUTH EVERY DAY 90 tablet 3 4 Active metoprolol XL (TOPROL-XL) 50 mg extended release tabletIndications :Essential hypertension TAKE 1 TABLET BY MOUTH EVERY DAY 90 tablet 3 4 Active amLODIPine (NORVASC) 10 mg tabletIndications :Essential hypertension TAKE 1 TABLET BY MOUTH EVERY DAY 90 tablet 3 5 Active famotidine (PEPCID) 40 mg tablet Take 1 tablet (40 mg total) by mouth daily 4 Active Active Problems Problem Noted Date Diagnosed Date [...] on file Legal Sex Male 2:24 AM BUSINESS INTELLIGENCE ARCHITECT Gender Identity Not on file Sexual Orientation Not on file Last Filed Vital Signs Vital Sign Reading Time Taken Comments Blood Pressure 100/50 05/08/2024 9:49 AM BUSINESS INTELLIGENCE ARCHITECT Pulse 72 05/08/2024 9:49 AM BUSINESS INTELLIGENCE ARCHITECT Temperature - - Respiratory Rate 16 12/15/2016 12:55 PM CDT Oxygen Saturation 97% 05/08/2024 9:49 AM BUSINESS INTELLIGENCE ARCHITECT Inhaled Oxygen Concentration - - Weight 86.5 kg (190 lb 9.6 oz) 05/08/2024 9:49 A M BUSINESS INTELLIGENCE ARCHITECT Height 182.9 cm (6') 05/08/2024 9:49 AM BUSINESS INTELLIGENCE ARCHITECT Body Mass Index 25.85 05/08/2024 9:49 AM BUSINESS INTELLIGENCE ARCHITECT Plan of Treatment Not on file Procedures Procedure Name Priority Date/Time Associated Diagnosis Comments POCT LIPID PANEL Routine 05/08/2024 10:1 6 AM BUSINESS INTELLIGENCE ARCHITECT Mixed hyperlipidemia CT ABDOMEN W CONTRAST Schedule Routine, Read Routine (OP Routine) 02/16/2019 from Last 3 Months or Most Recently Relevant to Health Maintenance Results * POCT lipid panel (05/08/2024 10:16 AM BUSINESS INTELLIGENCE ARCHITECT) Cholesterol, POC 145 mg/dL HDL, POC 53 mg/dL Triglycerides, POC 123 mg/dL LDL Cholesterol POC 67 mg/dL Chol/HDL Ratio, POC 1.3 Non-HDL Cholesterol, POC 92 mg/dL Cholesterol Total, POC 145 mg/dL Capillary blood 05/08/2024 1 0:16 AM BUSINESS INTELLIGENCE ARCHITECT Hong Merrill MD POINT OF CARE TEST O RDERABLES Final Result * CT Abdomen W Contrast (02/16/2019) Anatomical Region Laterality Modality Body N/A Computed Tomogra phy Historical Provider MD OSMAN CT PROCEDURES Final R esult from Last 3 Months or Most Recently Relevant to Health Maintenance Insurance MEDICARE [facility] MEDICARE [facility] MEDICARE SUPPLEMENT Member Subscriber Plan / Payer ( fective 2020-Present) Name:Casimiro Howard Relation to Subscriber:Self Name:Casimiro Howard Payer ID:[id number] Group ID:[id number] Type:COMMERCIAL Address: [address] [place] [id number] Care Teams Window Installation Subcontractor Relationship Specialty Start Date End Date Leighton Trent DO PCP - General Family Medicine 04/14/22
--- OUTSIDE RECORDS SUMMARY | 2024-07-03 12:48 | XMS_ITS | Clinical Summary ---
Author Organization [facility] Address [address] [place] [address] Care Team Providers Care Operations Leader Name Role Phone Leighton Trent DO Primary Care Provider [phone] Allergies No known active allergies Medications atorvastatin [...] Department Care Team Description 05/08/2024 9:45 AM MOBILE APPLICATION TESTER Office Visit [facility] Medical [facility] Cardiology [address] [place] [address] Hong Merrill MD Status post device closure [...] on file Legal Sex Male 2:24 AM MOBILE APPLICATION TESTER Gender Identity Not on file Sexual Orientation Not on file Obstetrics History Last Filed Vital Signs Vital Sign Reading Time Taken Comments Blood Pressure 100/50 05/08/2024 9:49 AM MOBILE APPLICATION TESTER Pulse 72 05/08/2024 9:49 AM MOBILE APPLICATION TESTER Temperature - - Respiratory Rate 16 12/15/2016 12:55 PM CDT Oxygen Saturation 97% 05/08/2024 9:49 AM MOBILE APPLICATION TESTER Inhaled Oxygen Concentration - - Weight 86.5 kg (190 lb 9.6 oz) 05/08/2024 9:49 A M MOBILE APPLICATION TESTER Height 182.9 cm (6') 05/08/2024 9:49 AM MOBILE APPLICATION TESTER Body Mass Index 25.85 05/08/2024 9:49 AM MOBILE APPLICATION TESTER Plan of Treatment Health Maintenance Due Date [...] LIPID PANEL Routine 05/08/2024 10:1 6 AM MOBILE APPLICATION TESTER Mixed hyperlipidemia CT ABDOMEN W CONTRAST Schedule Routine, Read Routine (OP Routine) 02/16/2019 from Last 3 Months or Most Recently Relevant to Health Maintenance Results * POCT lipid panel (05/08/2024 10:16 AM MOBILE APPLICATION TESTER) Cholesterol, POC 145 mg/dL HDL, POC 53 mg/dL Triglycerides, POC 123 mg/dL LDL Cholesterol POC 67 mg/dL Chol/HDL Ratio, POC 1.3 Non-HDL Cholesterol, POC 92 mg/dL Cholesterol Total, POC 145 mg/dL Capillary blood 05/08/2024 1 0:16 AM MOBILE APPLICATION TESTER Hong Merrill MD POINT OF CARE TEST O RDERABLES Final Result * CT Abdomen W Contrast (02/16/2019) Anatomical Region Laterality Modality Body N/A Computed Tomogra phy Historical Provider IMG CT PROCEDURES Final R esult from Last 3 Months or Most Recently Relevant to Health Maintenance Insurance MEDICARE [facility] MEDICARE [facility] MEDICARE SUPPLEMENT Care Teams Operations Leader Relationship Specialty Start Date End Date Leighton Trent DO PCP - General Family Medicine 04/14/22
--- OUTSIDE RECORDS SUMMARY | 2024-07-03 12:48 | XMS_ITS | Clinical Summary ---
Author Organization [facility] Address [address] [place] [address] Care Team Providers Care Wastewater Manager Name Role Phone Unavailable Primary Care Provider Unavailabl e Source Comments [facility],non-owned Affiliates and Associated Physician Practices is amultiple site organization consisting of ambulatory clinics and hospital sitesin [place], [place], [place]. This disclosure is being madepursuant to the Care Everywhere program and may not contain all information available regarding this patient. Last updated 17.[facility] [employer] Social History Tobacco Use Types Packs/Day Years Used Date Smoking Tobacco: Never Assessed Sex and Gender Information Value Date Recorded Sex Assigned at Not on file Legal Sex Male 10:16 AM CDT Gender Identity Not on file Sexual Orientation [...] - 2023-2 5 season) 2023 06/06/2020, 05/16/2020 DEPRESSION SCREENING 03/08/2024 INFLUENZA VACCINE (Season Ended) 2024 Respiratory Syncytial Virus (RSV) Vaccine Pt: or [...]
[2024-07-03 15:59] LABS: Folic Acid 10.4 ng/mL (2.76->20)
== END 2024-07-03 10:55 | disposition home or self-care (01) ==
LOC: ANHGOSHLAB 10:56
PROVIDERS: PCP Family Medicine; Visit Provider Family Medicine
DX: D64.9 Anemia, unspecified (principal)
CPT/HCPCS: 36415; 82607; 82728; 82746; 83540; 83550; 85027

== ENCOUNTER 2024-07-24 10:30 | Outpatient (CLI) | payer MEDICARE, SELFPAY ==
--- NOTE | ~2024-07-24 | XR_ITS ---
[id number] Ordering provider: Juanita Aaron, COAT JOINER LOCKSTITCH-C History: . Pain in left foot, Lt heel x 3 wks . Comparison: None. FINDINGS: BONES: No acute fracture or dislocation. JOINT SPACES: Normal. No tarsal coalition. SOFT TISSUES: Normal. Calcaneal spur. IMPRESSION: No acute osseous abnormality left foot. Reviewed, dictated and finalized at location A.
== END 2024-07-24 10:31 | disposition home or self-care (01) ==
LOC: GOSHIMG 10:31
PROVIDERS: PCP Family Medicine; Visit Provider Nurse Practitioner
DX: M79.672 Pain in left foot (principal)
CPT/HCPCS: 73630

== ENCOUNTER 2024-08-04 11:06 | Outpatient (CLI) | payer MEDICARE, SELFPAY ==
--- OUTSIDE RECORDS SUMMARY | 2024-08-04 11:15 | XMS_ITS | Referral Summary ---
Author Organization [facility] Address [address] [place] [address] Care Team Providers Care Electron Beam Operator Name Role Phone Leighton Trent DO Primary Care Provider [phone] Encounters Date Type Department Care Team Description 05/08/2024 9:45 AM ENERGY CONTROL OFFICER Office Visit [facility] Group Cardiology [address] [place] [address] Hong Merrill MD Status post [...] on file Legal Sex Male 2:24 AM ENERGY CONTROL OFFICER Gender Identity Not on file Sexual Orientation Not on file Last Filed Vital Signs Vital Sign Reading Time Taken Comments Blood Pressure 100/50 05/08/2024 9:49 AM ENERGY CONTROL OFFICER Pulse 72 05/08/2024 9:49 AM ENERGY CONTROL OFFICER Temperature - - Respiratory Rate 16 12/15/2016 12:55 PM CDT Oxygen Saturation 97% 05/08/2024 9:49 AM ENERGY CONTROL OFFICER Inhaled Oxygen Concentration - - Weight 86.5 kg (190 lb 9.6 oz) 05/08/2024 9:49 A M ENERGY CONTROL OFFICER Height 182.9 cm (6') 05/08/2024 9:49 AM ENERGY CONTROL OFFICER Body Mass Index 25.85 05/08/2024 9:49 AM ENERGY CONTROL OFFICER Plan of Treatment Not on file Procedures Procedure Name Priority Date/Time Associated Diagnosis Comments POCT LIPID PANEL Routine 05/08/2024 10:1 6 AM ENERGY CONTROL OFFICER Mixed hyperlipidemia CT ABDOMEN W CONTRAST Schedule Routine, Read Routine (OP Routine) 02/16/2019 from Last 3 Months or Most Recently Relevant to Health Maintenance Results * POCT lipid panel (05/08/2024 10:16 AM ENERGY CONTROL OFFICER) Cholesterol, POC 145 mg/dL HDL, POC 53 mg/dL Triglycerides, POC 123 mg/dL LDL Cholesterol POC 67 mg/dL Chol/HDL Ratio, POC 1.3 Non-HDL Cholesterol, POC 92 mg/dL Cholesterol Total, POC 145 mg/dL Capillary blood 05/08/2024 1 0:16 AM ENERGY CONTROL OFFICER Hong Merrill MD POINT OF CARE TEST O RDERABLES Final Result * CT Abdomen W Contrast (02/16/2019) Anatomical Region Laterality Modality Body N/A Computed Tomogra phy Historical Provider MD OSMAN CT PROCEDURES Final R esult from Last 3 Months or Most Recently Relevant to Health Maintenance Insurance MEDICARE [facility] MEDICARE [facility] MEDICARE SUPPLEMENT Member Subscriber Plan / Payer ( fective 2020-Present) Name:Casimiro Howard Relation to Subscriber:Self Name:Casimiro Howard Payer ID:[id number] Group ID:[id number] Type:COMMERCIAL Address: [address] [place] [phone] Care Teams Electron Beam Operator Relationship Specialty Start Date End Date Leighton Trent DO PCP - General Family Medicine 04/14/22
--- OUTSIDE RECORDS SUMMARY | 2024-08-04 11:15 | XMS_ITS | Clinical Summary ---
Author Organization [facility] Address [address] [facility] [place] [address] Care Team Providers Care Splitting Machine Operator Name Role Phone Unavailable Primary Care Provider Unavailabl e Source Comments [facility],non-owned Affiliates and Associated Physician Practices is amultiple site organization consisting of ambulatory clinics and hospital sitesin [place], [place], [place] and [place]. This disclosure is being madepursuant to the Care Everywhere program and may not contain all information available regarding this patient. Last updated 17.[facility] [employer] Social History Tobacco Use Types Packs/Day Years [...]
--- OUTSIDE RECORDS SUMMARY | 2024-08-04 11:15 | XMS_ITS | Clinical Summary ---
Author Organization [facility] Address [address] [place] [address] Care Team Providers Care Supervisor Evaporator Name Role Phone Leighton Trent DO Primary Care Provider [phone] Allergies No known active allergies Medications atorvastatin [...] Department Care Team Description 05/08/2024 9:45 AM DRY CELL BATTERY ASSEMBLER Office Visit [facility] Medical [facility] Cardiology [address] [place] [address] Hong Merrill MD Status post device closure [...] on file Legal Sex Male 2:24 AM DRY CELL BATTERY ASSEMBLER Gender Identity Not on file Sexual Orientation Not on file Obstetrics History Last Filed Vital Signs Vital Sign Reading Time Taken Comments Blood Pressure 100/50 05/08/2024 9:49 AM DRY CELL BATTERY ASSEMBLER Pulse 72 05/08/2024 9:49 AM DRY CELL BATTERY ASSEMBLER Temperature - - Respiratory Rate 16 12/15/2016 12:55 PM CDT Oxygen Saturation 97% 05/08/2024 9:49 AM DRY CELL BATTERY ASSEMBLER Inhaled Oxygen Concentration - - Weight 86.5 kg (190 lb 9.6 oz) 05/08/2024 9:49 A M DRY CELL BATTERY ASSEMBLER Height 182.9 cm (6') 05/08/2024 9:49 AM DRY CELL BATTERY ASSEMBLER Body Mass Index 25.85 05/08/2024 9:49 AM DRY CELL BATTERY ASSEMBLER Plan of Treatment Health Maintenance Due Date Last Done Comments Colon Cancer Screening-Colonoscopy 1954 Depression Screening 1954 Fall Risk Assessment 1954 Hepatitis C Screening 1954 Prostate Cancer Screening-PSA 1954 DTaP/Tdap/Td Vaccine (1 - Tdap) 1965 Hepatitis B Screening 1972 Pneumococcal vaccine 65+ (1 of 2 - PCV) 1973 Zoster Vaccine (1 of 2) 2004 Well Visit 65+ 11/25/2019 Influenza Vaccine (Season Ended) 2024 Abdominal Aortic Aneurysm (A AA) Screen Completed 05/08/2024, 11/01/2023, 04/27/2023, Additional history exists Procedures Procedure Name Priority Date/Time Associated Diagnosis Comments POCT LIPID PANEL Routine 05/08/2024 10:1 6 AM DRY CELL BATTERY ASSEMBLER Mixed hyperlipidemia CT ABDOMEN W CONTRAST Schedule Routine, Read Routine (OP Routine) 02/16/2019 from Last 3 Months or Most Recently Relevant to Health Maintenance Results * POCT lipid panel (05/08/2024 10:16 AM DRY CELL BATTERY ASSEMBLER) Cholesterol, POC 145 mg/dL HDL, POC 53 mg/dL Triglycerides, POC 123 mg/dL LDL Cholesterol POC 67 mg/dL Chol/HDL Ratio, POC 1.3 Non-HDL Cholesterol, POC 92 mg/dL Cholesterol Total, POC 145 mg/dL Capillary blood 05/08/2024 1 0:16 AM DRY CELL BATTERY ASSEMBLER Hong Merrill MD POINT OF CARE TEST O RDERABLES Final Result * CT Abdomen W Contrast (02/16/2019) Anatomical Region Laterality Modality Body N/A Computed Tomogra phy Historical Provider IMG CT PROCEDURES Final R esult from Last 3 Months or Most Recently Relevant to Health Maintenance Insurance MEDICARE [facility] MEDICARE [facility] MEDICARE SUPPLEMENT Care Teams Supervisor Evaporator Relationship Specialty Start Date End Date Leighton Trent DO PCP - General Family Medicine 04/14/22
[2024-08-04 16:36] LABS: Hematocrit 35.1 % (42.0-52.0); Hemoglobin 11.6 g/dL (14.0-18.0); Mean Corpuscular Hemoglobin 36.1 pg (26-34); Mean Corpuscular Volume 109.3 fl (80-100); Mean Platelet Volume 9.3 fl (7.4-10.4); Platelet Count Result 191 k/mm3 (150-375); Red Blood Count 3.21 M/mm3 (4.6-6.20); Red Cell Distribution Width 12.9 % (11.5-14.5)
[2024-08-04 19:55] LABS: Alanine Aminotransferase 30 U/L (6-50); Alkaline Phosphatase 64 U/L (38-126); Anion Gap 4 mmol/L (4-12); Aspartate Amino Transferase 49 U/L (17-59); Bilirubin,Total 0.5 mg/dL (0.2-1.3); Blood Urea Nitrogen 25 mg/dL (9-20); Calcium 9.1 mg/dL (8.4-10.2); Carbon Dioxide 28 mmol/L (22-30); Chloride 106 mmol/L (98-107); Cholesterol 179 mg/dL (0-200); Estimated Glomerular Filt Rate 55; Glucose 101 mg/dL (65-110); HDL Direct 52 mg/dL; Potassium 4.1 mmol/L (3.4-5.0); Sodium 138 mmol/L (137-145); Triglycerides 96 mg/dL (<150)
[2024-08-04 20:06] LABS: LDL Cholesterol Direct 86 mg/dL
[2024-08-04 20:33] LABS: Hemoglobin A1C 5.8 % (<5.7)
== END 2024-08-04 11:07 | disposition home or self-care (01) ==
LOC: ANHGOSHLAB 11:07
PROVIDERS: PCP Family Medicine; Visit Provider Family Medicine
DX: D64.9 Anemia, unspecified (principal); I10 Essential (primary) hypertension; E78.2 Mixed hyperlipidemia; R73.03 Prediabetes; E53.8 Deficiency of other specified B group vitamins; Z79.899 Other long term (current) drug therapy
CPT/HCPCS: 36415; 80053; 80061; 82607; 83036; 84443; 85027

== ENCOUNTER 2024-10-24 10:04 | Outpatient (CLI) | payer MEDICARE, SELFPAY ==
--- OUTSIDE RECORDS SUMMARY | 2024-10-24 10:33 | XMS_ITS | Clinical Summary ---
Author Organization [facility] Address [address] [place] [address] Care Team Providers Care Pig Farm Manager Name Role Phone Unavailable Primary Care Provider Unavailabl e Source Comments [facility],non-owned Affiliates and Associated Physician Practices is amultiple site organization consisting of ambulatory clinics and hospital sitesin [place], [place], [place] and [place]. This disclosure is being madepursuant to the Care Everywhere program and may not contain all information available regarding this patient. Last updated 17.[facility] Social History Tobacco Use Types Packs/Day Years [...] 06/06/2020, 05/16/2020 DEPRESSION SCREENING 03/08/2024 INFLUENZA VACCINE (#1) 2024 Respiratory Syncytial Virus (RSV) Vaccine Pt: [...]
--- OUTSIDE RECORDS SUMMARY | 2024-10-24 10:33 | XMS_ITS | Clinical Summary ---
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 Gender Identity Not on file Sexual Orientation Not on file Obstetrics History Last Filed Vital Signs Vital Sign Reading Time Taken Comments Blood Pressure 100/50 05/08/2024 9:49 AM APPRENTICE PAINTER BRUSH Pulse 72 05/08/2024 9:49 AM APPRENTICE PAINTER BRUSH Temperature - - Respiratory Rate 16 12/15/2016 12:55 PM CDT Oxygen Saturation 97% 05/08/2024 9:49 AM APPRENTICE PAINTER BRUSH Inhaled Oxygen Concentration - - Weight 86.5 kg (190 lb 9.6 oz) 05/08/2024 9:49 A M APPRENTICE PAINTER BRUSH Height 182.9 cm (6') 05/08/2024 9:49 AM APPRENTICE PAINTER BRUSH Body Mass Index 25.85 05/08/2024 9:49 AM APPRENTICE PAINTER BRUSH Plan of Treatment Health Maintenance Due Date Last Done Comments Colon Cancer Screening-Colonoscopy 1954 Depression Screening 1954 Fall Risk Assessment 1954 Hepatitis C Screening 1954 Prostate Cancer Screening-PSA 1954 DTaP/Tdap/Td Vaccine (1 - Tdap) 1965 Hepatitis B Screening 1972 Pneumococcal vaccine 65+ (1 of 2 - PCV) 1973 Zoster Vaccine (1 of 2) 2004 Well Visit 65+ 11/25/2019 Influenza Vaccine (#1) 2024 Abdominal Aortic Aneurysm (A AA) Screen Completed 05/08/2024, 11/01/2023, 04/27/2023, Additional history exists Procedures Procedure Name Priority Date/Time Associated Diagnosis Comments CT ABDOMEN W CONTRAST Schedule Routine, Read Routine (OP Routine) 02/16/2019 from Last 3 Months or Most Recently Relevant to Health Maintenance Results * CT Abdomen W Contrast (02/16/2019) Anatomical Region Laterality Modality Body N/A Computed Tomogra phy Historical Provider MD OSMAN CT PROCEDURES Final R esult from Last 3 Months or Most Recently Relevant to Health Maintenance Insurance MEDICARE [facility] MEDICARE [facility] MEDICARE SUPPLEMENT Care Teams Elementary School Social Worker Relationship Specialty Start Date End Date Leighton Trent DO PCP - General Family Medicine 04/14/22
[2024-10-24 12:56] LABS: Hematocrit 33.9 % (42.0-52.0); Hemoglobin 11.3 g/dL (14.0-18.0); Mean Corpuscular HGB Conc 33.3 g/dl (32-36); Mean Corpuscular Hemoglobin 36.2 pg (26-34); Mean Corpuscular Volume 108.7 fl (80-100); Platelet Count Result 236 k/mm3 (150-375); Red Blood Count 3.12 M/mm3 (4.6-6.20); White Blood Count 4.2 K/mm3 (4.5-10.0)
[2024-10-24 13:41] LABS: Iron 103 ug/dL (49-181)
[2024-10-24 13:54] LABS: Percent Iron Saturation 41 % (20-50)
[2024-10-24 14:23] LABS: Ferritin 324.00 ng/mL (11.1-264)
[2024-10-24 17:40] LABS: Alanine Aminotransferase 23 U/L (6-50); Albumin Level 4.1 g/dL (3.5-5.1); Alkaline Phosphatase 78 U/L (38-126); Anion Gap 5 mmol/L (4-12); Aspartate Amino Transferase 30 U/L (17-59); Bilirubin,Total 0.6 mg/dL (0.2-1.3); Blood Urea Nitrogen 25 mg/dL (9-20); Calcium 9.1 mg/dL (8.4-10.2); Carbon Dioxide 27 mmol/L (22-30); Chloride 104 mmol/L (98-107); Estimated Glomerular Filt Rate 48; Glucose 104 mg/dL (65-110); Potassium 4.7 mmol/L (3.4-5.0); Sodium 136 mmol/L (137-145); Total Protein 8.3 g/dL (6.3-8.2)
[2024-10-24 18:06] LABS: Thyroid Stimulating Hormone 1.100 uIU/mL (0.465-4.680)
[2024-10-24 18:58] LABS: Vitamin B12 984.0 pg/mL (239-931)
== END 2024-10-24 10:05 | disposition home or self-care (01) ==
LOC: ANHGOSHLAB 10:06
PROVIDERS: PCP Family Medicine; Visit Provider Family Medicine
DX: E78.5 Hyperlipidemia, unspecified (principal); I10 Essential (primary) hypertension; R73.03 Prediabetes; E53.8 Deficiency of other specified B group vitamins; D64.9 Anemia, unspecified; Z79.899 Other long term (current) drug therapy
CPT/HCPCS: 36415; 80053; 82607; 82728; 82746; 83540; 83550; 84443; 85027

== ENCOUNTER 2024-10-30 13:06 | Outpatient (CLI) | payer MEDICARE, SELFPAY ==
--- OUTSIDE RECORDS SUMMARY | 2024-10-30 13:14 | XMS_ITS | Clinical Summary ---
Author Organization [facility] Address [address] [place] [address] Care Team Providers Care Airport Location Manager Name Role Phone Leighton Trent DO Primary Care Provider [phone] Allergies No known active allergies Medications atorvastatin [...] on file Legal Sex Male 2:24 AM HARP MAKER Gender Identity Not on file Sexual Orientation Not on file Obstetrics History Last Filed Vital Signs Vital Sign Reading Time Taken Comments Blood Pressure 100/50 05/08/2024 9:49 AM HARP MAKER Pulse 72 05/08/2024 9:49 AM HARP MAKER Temperature - - Respiratory Rate 16 12/15/2016 12:55 PM CDT Oxygen Saturation 97% 05/08/2024 9:49 AM HARP MAKER Inhaled Oxygen Concentration - - Weight 86.5 kg (190 lb 9.6 oz) 05/08/2024 9:49 A M HARP MAKER Height 182.9 cm (6') 05/08/2024 9:49 AM HARP MAKER Body Mass Index 25.85 05/08/2024 9:49 AM HARP MAKER Plan of Treatment Health Maintenance Due Date [...] to Health Maintenance Insurance MEDICARE [facility] MEDICARE [facility] MEDICARE SUPPLEMENT Care Teams Airport Location Manager Relationship Specialty Start Date End Date Leighton Trent DO PCP - General Family Medicine 04/14/22
--- OUTSIDE RECORDS SUMMARY | 2024-10-30 13:14 | XMS_ITS | Clinical Summary ---
Author Organization [facility] Address [address] [facility] [place] [address] Care Team Providers Care National Sales Consultant Name Role Phone Unavailable Primary Care Provider Unavailabl e Source Comments [facility],non-owned Affiliates and Associated Physician Practices is amultiple site organization consisting of ambulatory clinics and hospital sitesin [place], [place], [place] and [place]. This disclosure is being madepursuant to the Care Everywhere program and may not contain all information available regarding this patient. Last updated 17.[facility] [employer] Social History Tobacco Use Types Packs/Day Years [...]
[2024-10-30 15:15] LABS: Anion Gap 5 mmol/L (4-12); Blood Urea Nitrogen 26 mg/dL (9-20); Calcium 8.4 mg/dL (8.4-10.2); Carbon Dioxide 28 mmol/L (22-30); Chloride 102 mmol/L (98-107); Estimated Glomerular Filt Rate 53; Glucose 75 mg/dL (65-110); Potassium 3.9 mmol/L (3.4-5.0); Sodium 135 mmol/L (137-145)
== END 2024-10-30 13:07 | disposition home or self-care (01) ==
LOC: ANHGOSHLAB 13:07
PROVIDERS: PCP Family Medicine; Visit Provider Family Medicine
DX: Z79.899 Other long term (current) drug therapy (principal)
CPT/HCPCS: 36415; 80048

== ENCOUNTER 2024-11-07 10:28 | Outpatient (CLI) | payer MEDICARE, SELFPAY ==
--- OUTSIDE RECORDS SUMMARY | 2024-11-07 11:01 | XMS_ITS | Clinical Summary ---
Author Organization [facility] Address [address] [place] [address] Care Team Providers Care Diamond Die Driller Name Role Phone Leighton Trent DO Primary Care Provider [phone] Allergies No known active allergies Medications atorvastatin [...] on file Legal Sex Male 2:24 AM ASSEMBLER WATCH TRAIN Gender Identity Not on file Sexual Orientation Not on file Obstetrics History Last Filed Vital Signs Vital Sign Reading Time Taken Comments Blood Pressure 100/50 05/08/2024 9:49 AM ASSEMBLER WATCH TRAIN Pulse 72 05/08/2024 9:49 AM ASSEMBLER WATCH TRAIN Temperature - - Respiratory Rate 16 12/15/2016 12:55 PM CDT Oxygen Saturation 97% 05/08/2024 9:49 AM ASSEMBLER WATCH TRAIN Inhaled Oxygen Concentration - - Weight 86.5 kg (190 lb 9.6 oz) 05/08/2024 9:49 A M ASSEMBLER WATCH TRAIN Height 182.9 cm (6') 05/08/2024 9:49 AM ASSEMBLER WATCH TRAIN Body Mass Index 25.85 05/08/2024 9:49 AM ASSEMBLER WATCH TRAIN Plan of Treatment Health Maintenance Due Date [...] Recently Relevant to Health Maintenance [place] [address] [facility] MEDICARE [facility] MEDICARE SUPPLEMENT Care Teams Diamond Die Driller Relationship Specialty Start Date End Date Leighton Trent DO PCP - General Family Medicine 04/14/22
--- OUTSIDE RECORDS SUMMARY | 2024-11-07 11:01 | XMS_ITS | Clinical Summary ---
Author Organization [facility] Address [address] [place] [address] Care Team Providers Care Elderly Caregiver Name Role Phone Unavailable Primary Care Provider Unavailabl e Source Comments [facility],non-owned Affiliates and Associated Physician Practices is amultiple site organization consisting of ambulatory clinics and hospital sitesin [place], [place], [place] and [place]. This disclosure is being madepursuant to the Care Everywhere program and may not contain all information available regarding this patient. Last updated 17.[facility] [employer] Social History Tobacco Use Types Packs/Day Years [...]
[2024-11-07 16:08] LABS: Anion Gap 7 mmol/L (4-12); Blood Urea Nitrogen 25 mg/dL (9-20); Calcium 8.6 mg/dL (8.4-10.2); Carbon Dioxide 26 mmol/L (22-30); Chloride 101 mmol/L (98-107); Estimated Glomerular Filt Rate 55; Glucose 127 mg/dL (65-110); Potassium 3.9 mmol/L (3.4-5.0); Sodium 134 mmol/L (137-145)
== END 2024-11-07 10:29 | disposition home or self-care (01) ==
LOC: ANHGOSHLAB 10:29
PROVIDERS: PCP Family Medicine; Visit Provider Family Medicine
DX: R79.89 Other specified abnormal findings of blood chemistry (principal)
CPT/HCPCS: 36415; 80048

== ENCOUNTER 2025-01-18 11:04 | Outpatient (CLI) | payer MEDICARE, SELFPAY ==
--- OUTSIDE RECORDS SUMMARY | 2025-01-18 10:30 | XMS_ITS | Encounter Summary ---
Author Organization [facility] Address [address] [place] [address] Care Team Providers Care Supervisor Last Model Department Name Role Phone Divine Virk DO Primary Care Provider [phone] Encounter Details Date Type Department Care Team (Late st Contact Info) Description 01/18/2025 10:30 AM SALES RECRUITER Office Visit [facility] Oncology and Hematology - [place] [address] [place] [address] Harriet Soares MD [address] [place] [address] Macrocytic anemia (Primary Dx) Social History Tobacco Use Types Packs/Day Years Used Date Smoking Tobacco: Former Cigarettes 0.5 40 0 10/06/1970 - 10/06/2010 Smokeless Tobacco: Never Alcohol Use Standard Drinks/Week Comments Never 0 (1 standard drink = 0.6 oz pur e alcohol) Sex and Gender Information Value Date Recorded Sex Assigned at Not on file Legal Sex Male 11:03 AM CDT Gender Identity Not on file Sexual Orientation Not on file documented as of this encounter Last Filed Vital Signs Vital Sign Reading Time Taken Comments Blood Pressure 127/66 01/18/2025 10:10 AM SALES RECRUITER Pulse 65 01/18/2025 10:10 AM SALES RECRUITER Temperature 36.6 C (97.8 F) 01/18/2025 10:10 AM SALES RECRUITER Respiratory Rate 15 01/18/2025 10:10 AM SALES RECRUITER Oxygen Saturation 97% 01/18/2025 10:10 AM SALES RECRUITER Inhaled Oxygen Concentration - - Weight 88.5 kg (195 lb) 01/18/2025 10:10 AM SALES RECRUITER Height 182.9 cm (6') 01/18/2025 10:10 AM SALES RECRUITER Body Mass Index 26.45 01/18/2025 10:10 AM SALES RECRUITER documented in this encounter Plan of Treatment Upcoming Encounters Date Type Department Care Team (Late st Contact Info) Description 02/08/2025 4:30 PM SALES RECRUITER Telephone Check Up [facility] Oncology and Hematology [facility] [address] [facility] [address] [place] [address] Durga Viveros MD [address] [facility] [address] [place] [address] Scheduled Orders Name Type Priority Associated Diagnoses Orde r Schedule CBC WITH DIFFERENTIAL Lab Stat Macrocytic anemia Expected: 01/18/2025, Expires: 01/18/2026 COMPREHENSIVE METABOLIC PANEL Lab Stat Macrocytic anemia Expected: 01/18/2025, Expires: 01/18/2026 RETICULOCYTES Lab Routine Macrocytic anemia Ordered: 01/18/2025 TSH Lab Routine Macrocytic anemia Expected: 01/18/2025, Expires: 01/18/2026 LACTATE DEHYDROGENASE Lab Routine Macrocytic anemia Expected: 01/18/2025, Expires: 01/18/2026 FERRITIN Lab Routine Macrocytic anemia Expected: 01/18/2025, Expires: 01/18/2026 METHYLMALONIC ACID Lab Routine Macrocytic anemia Ordered: 01/18/2025 HOMOCYSTEINE Lab Routine Macrocytic anemia Expected: 01/18/2025, Expires: 01/18/2026 PROTEIN ELECTROPHORESIS W/REFLEX,SERUM Lab Routine Macrocytic anemia Ordered: 01/18/2025 IRON, TIBC, AND PERCENT SATURATION Lab Routine Macrocytic anemia Expected: 01/18/2025, Expires: 01/18/2026 documented as of this encounter Visit Diagnoses Diagnosis Macrocytic anemia- Primary Unspecified deficiency anemia documented in this encounter Care Teams Supervisor Last Model Department Relationship Specialty Start Date End Date Divine Virk DO [address] [facility] [facility] [address] [place] [address] PCP - General Family Practice 01/18/25 documented as of this encounter
[2025-01-18 11:23] LABS: Hematocrit 32.6 % (42.0-52.0); Hemoglobin 11.1 g/dL (14.0-18.0); Immature Granulocyte Percent A 0.3 % (0-0.5); Immature Reticulocyte Fraction 11.2 % (3.0-15.9); Lymphocytes Absolute Auto 0.99 K/mm3 (0.9-3.2); Mean Corpuscular HGB Conc 34.0 g/dl (32-36); Mean Corpuscular Hemoglobin 37.0 pg (26-34); Mean Corpuscular Volume 108.7 fl (80-100); Nucleated Red Blood Cells Absolute Auto 0.000 K/mm3 (0.0-0.012); Nucleated Red Blood Cells Perc 0.0 % (0.0-0.2); Platelet Count Result 169 k/mm3 (150-375); Red Blood Count 3.00 M/mm3 (4.6-6.20); Reticulocyte Hemoglobin Conten 40.9 pg (28.2-36.6); Reticulocytes Absolute 0.03 10^6/uL (0.02-0.10); White Blood Count 3.5 K/mm3 (4.5-10.0)
--- OUTSIDE RECORDS SUMMARY | 2025-01-18 12:08 | XMS_ITS | Clinical Summary ---
Author Organization [facility] Address [address] [place] [address] Care Team Providers Care Resident Physician Name Role Phone Unavailable Primary Care Provider Unavailabl e Source Comments [facility],non-owned Affiliates and Associated Physician Practices is amultiple site organization consisting of ambulatory clinics and hospital sitesin [place], [place], [place] and [place]. This disclosure is being madepursuant to the Care Everywhere program and may not contain all information available regarding this patient. Last updated 17.[facility] [employer] Social History Tobacco Use Types Packs/Day Years [...] 2004 ZOSTER VACCINE (1 of 2) 2004 DEPRESSION SCREENING 03/08/2024 COVID-19 VACCINE (3 - 2024-2 6 season) 2024 06/06/2020, 05/16/2020 INFLUENZA VACCINE (#1) 2024 Respiratory Syncytial Virus [...]
--- OUTSIDE RECORDS SUMMARY | 2025-01-18 12:08 | XMS_ITS | Clinical Summary ---
Author Organization [facility] Isael hastings Garret Address [address] [place] [address] Care Team Providers Care Slip Feeder Name Role Phone Divine Virk DO Primary Care Provider [phone] Allergies No known active allergies Medications albuterol sulfate 90 mcg/Actuation inhaler Take 2 Puffs by inhalation every 6 hours as needed for Wheezing. Active amLODIPine (NORVASC) 10 mg tablet Take 10 mg by mouth daily. 5 Active aspirin (ECOTRIN EC) 81 mg Tablet, Delayed Release (E.C.) Take 81 mg by mouth daily. Active atorvastatin (LIPITOR) 20 mg tablet Take 20 mg by mouth daily. Active chlorthalidone (HYGROTON) 25 mg tablet Take 1 Tablet by mouth daily. 5 Active cyanocobalamin 1,000 mcg Tablet Take 1,000 mcg by mouth daily. Active lisinopriL (PRINIVIL) 20 mg tablet Take 20 mg by mouth daily. 5 Active metoprolol succinate (TOPROL XL) 50 mg Extended Release 24 hour tablet Take 50 mg by mouth daily. 5 Active omeprazole (PriLOSEC) 20 mg Capsule, Delayed Release(E.C.) Take 20 mg by mouth daily. 5 Active Encounters Date Type Department Care Team Description 01/18/2025 10:30 AM PARI MUTUEL TICKET CASHIER Office Visit [facility] Oncology and Hematology - [place] [address] [place] [address] Harriet Soares MD Macrocytic anemia (Primary Dx) from Last 3 Months Family History Medical History Relation Name Comments No Known Problems Child 1 No Known Problems Child 2 Prostate Cancer Father Lung Cancer Mother Heart Disease Sister 1 No Known Problems Sister 2 No Known Problems Sister 3 No Known Problems Sister 4 Relation Name Status Comments Child 1 Alive Child 2 Alive Father Mother Alive Sister 1 Alive Sister 2 Alive Sister 3 Alive Sister 4 Alive Social History Tobacco Use Types Packs/Day Years [...] Comments Blood Pressure 127/66 01/18/2025 10:10 AM PARI MUTUEL TICKET CASHIER Pulse 65 01/18/2025 10:10 AM PARI MUTUEL TICKET CASHIER Temperature 36.6 C (97.8 F) 01/18/2025 10:10 AM PARI MUTUEL TICKET CASHIER Respiratory Rate 15 01/18/2025 10:10 AM PARI MUTUEL TICKET CASHIER Oxygen Saturation 97% 01/18/2025 10:10 AM PARI MUTUEL TICKET CASHIER Inhaled Oxygen Concentration - - Weight 88.5 kg (195 lb) 01/18/2025 10:10 AM PARI MUTUEL TICKET CASHIER Height 182.9 cm (6') 01/18/2025 10:10 AM PARI MUTUEL TICKET CASHIER Body Mass Index 26.45 01/18/2025 10:10 AM PARI MUTUEL TICKET CASHIER Plan of Treatment Upcoming Encounters Date Type Department Care Team (Late st Contact Info) Description 02/08/2025 4:30 PM PARI MUTUEL TICKET CASHIER Telephone Check Up [facility] Oncology and Hematology - [place] [address] [facility] [address] [place] [address] Durga Viveros MD [address] [facility] [address] [place] [address] Health Maintenance Due Date Last Done Comments DTAP/TDAP/TD VACCINES (1 - Tdap) 1973 Traditional Medicare (ACO) Annual Wellness Visit 11/24 COLORECTAL SCREENING 11/25/1999 Colorectal Cancer Screening 11/25/1999 FIT-DNA Q 3 years 11/25/1999 FIT/FOBT Q 1 year 11/25/1999 Flex Sig/CT Colonography Q 5 years 11/25/1999 PNEUMOCOCCAL VACCINE 50+ YEARS (1 of 1 - PCV) 11/25/19 05 ZOSTER VACCINE (1 of 2) 2004 INFLUENZA VACCINE (#1) 2024 RSV VACCINE (60+ or ) (1 - 1-dose 75+ series) 2029 Insurance MEDICARE PART A AND B BCBS SUPP Care Teams Slip Feeder Relationship Specialty Start Date End Date Divine Virk DO [address] [facility] [address] [place] [address] PCP - General Family Practice 01/18/25
--- OUTSIDE RECORDS SUMMARY | 2025-01-18 12:08 | XMS_ITS | Clinical Summary ---
Author Organization [facility] Address [address] [place] [address] Care Team Providers Care Grease Machine Worker Name Role Phone Divine Virk DO Primary Care Provider [phone] Allergies No known active allergies Medications atorvastatin [...] by mouth daily Active chlorthalidone 25 mg tabletIndicatio ns:Essential hypertension Take 1 tablet (25 mg total) by mouth daily 30 tablet 11 03/13/19 22 Active Additional Information Patient taking differently: 12.5 mgoral Daily, Reported on 11/13/2024 amLODIPine (NORVASC) 10 mg tabletIndicatio ns:Essential hypertension TAKE 1 TABLET BY MOUTH EVERY DAY 90 tablet 3 03/28/19 25 Active omeprazole (PriLOSEC) 20 mg capsule Take 1 capsule (20 mg total) by mouth daily 10/25/19 25 Active cyanocobalamin (Vitamin B-12) 1,000 mcg tabletIndicatio ns:Prevention of Vitamin B12 Deficiency Take 1 tablet (1,000 mcg total) by mouth daily Active lisinopriL (PRINIVIL,ZESTR IL) 20 mg tabletIndicatio ns:Essential hypertension TAKE 1 TABLET BY MOUTH EVERY DAY 90 tablet 3 12/23/19 25 Active metoprolol XL (TOPROL-XL) 50 mg extended release tabletIndicatio ns:Essential hypertension TAKE 1 TABLET BY MOUTH EVERY DAY 90 tablet 3 01/09/20 25 Active lisinopriL (PRINIVIL,ZESTR IL) 20 mg tabletIndicatio ns:Essential hypertension TAKE 1 TABLET BY MOUTH EVERY DAY 90 tablet 3 12/20/19 24 025 Discontinued metoprolol XL (TOPROL-XL) 50 mg extended release tabletIndicatio ns:Essential hypertension TAKE 1 TABLET BY MOUTH EVERY DAY 90 tablet 3 01/12/20 24 025 Discontinued Active Problems Problem Noted Date Diagnosed Date [...] Encounters Date Type Department Care Team Description 11/13/2024 10:30 AM CDT Office Visit [facility] Medical Group Cardiology [address] [place] [address] Hong Merrill MD Status post device closure of ASD (Primary Dx); Aneurysm of ascending aorta without rupture; Essential hypertension; Abdominal aortic aneurysm (AAA) without rupture, unspecified part; Mixed hyperlipidemia from Last 3 Months Medical History Medical [...] on file 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 Gender Identity Not on file Sexual Orientation Not on file Last Filed Vital Signs Vital Sign Reading Time Taken Comments Blood Pressure 116/56 11/13/2024 10:21 AM CDT Pulse 68 11/13/2024 10:21 AM CDT Temperature - - Respiratory Rate 16 11/13/2024 10:21 AM CDT Oxygen Saturation 99% 11/13/2024 10:21 AM CDT Inhaled Oxygen Concentration - - Weight 87.5 kg (193 lb) 11/13/2024 10:21 AM CDT Height 182.9 cm (6') 11/13/2024 10:21 AM CDT Body Mass Index 26.18 11/13/2024 10:21 AM CDT Plan of Treatment Health Maintenance Due Date Last Done Comments Colon Cancer Screening-Colonoscopy 1954 Depression Screening 1954 Fall Risk Assessment 1954 Hepatitis C Screening 1954 DTaP/Tdap/Td Vaccine (1 - Tdap) 1965 Hepatitis B Screening 1972 Pneumococcal vaccine 65+ (1 of 2 - PCV) 1973 Zoster Vaccine (1 of 2) 2004 Well Visit 65+ 11/25/2019 Covid-19 Vaccine (4 - 2024-2 6 season) 2024 12/04/2020, 06/06/2020, 05/16/2020 Influenza Vaccine (#1) 2024 7, 12/25/2014, 11/28/2012 Abdominal Aortic Aneurysm (A AA) Screen Completed 11/13/2024, 05/08/2024, 11/01/2023, Additional history exists Procedures Procedure Name Priority [...] to Health Maintenance Insurance MEDICARE [facility] MEDICARE [facility] MEDICARE SUPPLEMENT Member Subscriber Plan / Payer (Ef fective 2020-Present) Name:Casimiro Howard Relation to Subscriber:Self Name:Casimiro Howard Payer ID:[id number] Group ID:[id number] Type:COMMERCIAL Address: [facility] [id number] [place] [id number] Care Teams Grease Machine Worker Relationship Specialty Start Date End Date Divine Virk DO PCP - General Family Medicine 11/13/24
[2025-01-18 13:53] LABS: Iron 140 ug/dL (49-181)
[2025-01-18 13:55] LABS: Alanine Aminotransferase 22 U/L (6-50); Albumin Level 4.3 g/dL (3.5-5.1); Alkaline Phosphatase 85 U/L (38-126); Anion Gap 5 mmol/L (4-12); Aspartate Amino Transferase 22 U/L (17-59); Bilirubin,Total 0.5 mg/dL (0.2-1.3); Blood Urea Nitrogen 21 mg/dL (9-20); Calcium 8.8 mg/dL (8.4-10.2); Carbon Dioxide 27 mmol/L (22-30); Chloride 103 mmol/L (98-107); Estimated Glomerular Filt Rate 55; Glucose 98 mg/dL (65-110); Potassium 4.4 mmol/L (3.4-5.0); Sodium 135 mmol/L (137-145); Total Protein 8.3 g/dL (6.3-8.2)
[2025-01-18 14:04] LABS: Percent Iron Saturation 56 % (20-50)
[2025-01-18 14:27] LABS: Thyroid Stimulating Hormone 2.030 uIU/mL (0.465-4.680)
[2025-01-18 14:35] LABS: Ferritin 263.00 ng/mL (11.1-264)
[2025-01-19 14:09] LABS: Albumin 3.8 g/dL (2.9-4.4); Alpha-1-Globulin 0.2 g/dL (0.0-0.4); Alpha-2-Globulin 0.6 g/dL (0.4-1.0); Gamma Globulin 2.0 g/dL (0.4-1.8)
== END 2025-01-18 11:05 | disposition home or self-care (01) ==
LOC: ANHLAB 11:05
PROVIDERS: PCP Family Medicine; Visit Provider Internal Medicine Hematology & Oncology
DX: D53.9 Nutritional anemia, unspecified (principal)
CPT/HCPCS: 36415; 80053; 82728; 83090; 83540; 83550; 83615; 84155; 84165; 84443; 85025; 85046